=== PATIENT | female | born 1980 | race Caucasian/White ===

== ENCOUNTER → 2022-10-03 | Outpatient (CLI) | payer OTHER, BC ==
[2022-10-03 08:53] LABS: BASO # 0.1 10^3/uL (0.0-0.2); BASO % 1.2 % (0.0-1.0); EOS # 0.4 10^3/uL (0.0-0.5); EOS % 5.5 % (0.0-3.0); HEMATOCRIT 46.4 % (36.0-47.0); HEMOGLOBIN 15.3 g/dl (12.0-15.5); LYMPH # 1.8 10^3/uL (1.5-5.0); LYMPH % 22.8 % (24.0-44.0); MEAN CORPUSCULAR HEMOGLOBIN 30.8 pg (27.0-33.0); MEAN CORPUSCULAR VOLUME 93.4 fl (80.0-96.0); MONO # 0.5 10^3/uL (0.0-0.8); NEUTROPHILS % 64.2 % (36.0-66.0); PLATELET COUNT, AUTOMATED 295 10^3/uL (150-450); RED BLOOD COUNT 4.97 10^6/uL (4.00-5.40); WHITE BLOOD COUNT 7.8 10^3/uL (4.0-10.0)
[2022-10-03 09:23] LABS: INR 0.92; PROTHROMBIN TIME 12.6 SECONDS (12.5-14.5)
[2022-10-03 09:29] LABS: ALBUMIN 3.9 G/DL (3.2-5.2); ALKALINE PHOSPHATASE 84 U/L (46-116); ALT/SGPT < 9 U/L (7.0-40); AST/SGOT 18 U/L (<34); BILIRUBIN,TOTAL 0.2 MG/DL (0.3-1.2); BLOOD UREA NITROGEN 17 MG/DL (9-23); CALCIUM LEVEL 8.6 MG/DL (8.5-10.1); CARBON DIOXIDE LEVEL 24 MMOL/L (20-31); CHLORIDE LEVEL 109 MMOL/L (98-107); CHOLESTEROL LEVEL 167 MG/DL (<200); CHOLESTEROL RISK RATIO 2.35 (<5); CREATININE FOR GFR 0.83 MG/DL (0.55-1.30); GLOMERULAR FILTRATION RATE > 60.0 (>58); GLUCOSE, FASTING 88 MG/DL (60-100); LDL CHOLESTEROL 79.2 MG/DL (<100); POTASSIUM SERUM 4.6 MMOL/L (3.5-5.1); SODIUM LEVEL 139 MMOL/L (136-145); TOTAL PROTEIN 6.8 G/DL (5.7-8.2); TRIGLYCERIDES LEVEL 84 MG/DL (<150)
[2022-10-03 09:57] LABS: HEMOGLOBIN A1c 4.7 % (4.0-6.0)
[2022-10-03 10:12] LABS: CREATININE, SERUM 0.8 MG/DL (0.55-1.02); TOTAL VOLUME, URINE 2650 ML
[2022-10-03 10:13] LABS: CREATININE, URINE 53.45 MG/DL
[2022-10-03 10:15] LABS: MALB URINE SIEMENS < 3.0 MG/L; MAU 24HR URINE 7.9 MG/24HR (0.0-30.0); MAU/MINUTE 5.5 MCG/MIN (0.0-20.0)
[2022-10-03 10:16] LABS: URINE TOTAL PROTEIN < 6.0 MG/DL (0-14)
== END ==
LOC: M LAB 07:45
PROVIDERS: ATTEND Nurse Practitioner Family
DX: Z52.4 Kidney donor (principal)

== ENCOUNTER → 2022-12-28 | Outpatient (CLI) | payer BC | LOC: M WHC 07:22 | PROVIDERS: ATTEND Obstetrics & Gynecology | DX: N63.13 Unspecified lump in the right breast, lower outer quadrant (principal) | CPT/HCPCS: 76642; 77066; G0279 ==

== ENCOUNTER → 2023-06-27 | Outpatient (CLI) | payer BC | LOC: M WHC 09:14 | PROVIDERS: ATTEND Advanced Practice Midwife | DX: N63.13 Unspecified lump in the right breast, lower outer quadrant (principal) ==

== ENCOUNTER → 2024-01-02 | Outpatient (CLI) | payer BC | LOC: M WHC 14:29 | PROVIDERS: ATTEND Obstetrics & Gynecology | DX: Z12.31 Encounter for screening mammogram for malignant neoplasm of breast (principal); N63.0 Unspecified lump in unspecified breast | CPT/HCPCS: 77066; G0279 ==